=== PATIENT | male | born 1985 | race Two or more races ===

== ENCOUNTER 2023-07-12 13:17 | Emergency (ER) | payer OTHER ==
[~2023-07-12] VITALS: Ht 172.7 cm; Wt 86.0 kg
[2023-07-12] MEDS ORDERED: TETANUS-DIPTH-ACEL PERTUSSIS 0.5ML SYR Tdap IM ONE (13:45)
[2023-07-12] MEDS ORDERED: ACETAMINOPHEN 500 MG TAB PO ONE (13:45)
[2023-07-12] MEDS ORDERED: CEPHALEXIN 250 MG CAP PO ONE (13:45)
[2023-07-12] MEDS ORDERED: CEPH500T PO (13:48)
[2023-07-12] MEDS ORDERED: ACET-6 PO (13:48)
[2023-07-12 14:20] VITALS: RESP 18; O2SAT 100
[2023-07-12 20:08] VITALS: BP 140/83; PULSE 78; RESP 19; TEMP 97.8; O2SAT 97
== END 2023-07-12 20:09 | disposition home or self-care (01) ==
LOC: ER 13:17
DX: S61.203A Unspecified open wound of left middle finger without damage to nail, initial encounter (principal); Z79.899 Other long term (current) drug therapy; W45.8XXA Other foreign body or object entering through skin, initial encounter; Y93.89 Activity, other specified; Y92.89 Other specified places as the place of occurrence of the external cause; Y99.8 Other external cause status
CPT/HCPCS: 12001; 90471; 90715

== ENCOUNTER 2024-08-26 20:15 | Emergency (ER) | payer OTHER ==
[~2024-08-26] VITALS: Ht 154.9 cm; Wt 86.4 kg
[~2024-08-26 20:15] MED LIST: ACET-6 PO; CEPH500T PO
[2024-08-26] MEDS: HYDROcodone-ACET 5/325MG TAB PO ONE (21:39)
--- NOTE | 2024-08-26 21:45 | DVH ---
INDICATION: BACK PAIN LUMBAR COMPARISON: None TECHNIQUE: Views of the lumbar spine were obtained. FINDINGS: There is normal alignment of the lumbar spine. The lumbar vertebral bodies and T10 to T12 are normal in appearance with no compression fracture. The intervertebral disc spaces are normal. Facet and SI j oints appear unremarkable. IMPRESSION: No abnormality demonstrated.
[2024-08-26] MEDS: DexAMETHasone SOD PHOS 10MG/1ML VIAL INJ IM ONE (21:52)
[2024-08-26] MEDS: KETOROLAC TROMETH 60MG/2ML VIAL IM ONE (21:52)
[2024-08-26 21:55] VITALS: BP 139/95; PULSE 91; RESP 16; TEMP 98.8; O2SAT 96
--- NOTE | 2024-08-26 22:07 | ED.PDOC ---
Back pain HPI HPI Comments THIS IS A 39-YEAR-OLD MALE PRESENTS TO THE ED CHIEF COMPLAINT BILATERAL LOWER BACK PAIN. PATIENT STATES PAIN STARTED AFTER REPETITIVE MOPPING AT WORK. NOTES BILATERAL LOWER BACK PAIN 9/10 ON PAIN SCALE DESCRIBES ACHY AND SHARP IN NATURE STATES RADIATION DOWN BILATERAL BUTTOCKS AND POSTERIOR UPPER LEG. KNOWN INJURY, NUMBNESS, OR WEAKNESS. NOTES NO SADDLE ANESTHESIA OR LOSS OF BOWEL OR BLADDER CONTROL. Chief Complaint: Back Pain Time Seen by MD: 20:30 Primary Care Provider: WORK [facility] Reviewed Notes: Nurses Notes, Medications, Allergies Allergies: Coded Allergies: NO KNOWN ALLERGIES (Unverified , 07/12/23) Home Meds Active Scripts Acetaminophen (Acetaminophen Extra Stren) 500 Mg Tab, 500 MG PO QIDPRN PRN for 10 Days, #40 TAB Prov:JAMESJOSHUABRANDON S DO 07/12/23 Cephalexin Monohydrate (Cephalexin) 500 Mg Tab, 1 TAB PO QID for 10 Days, #40 TAB Prov:JAMESJOSHUABRANDON Vasquez DO 07/12/23 Information Source: Patient Past Medical History PAST MEDICAL HISTORY: Denies Surgical History: Unknown Family History Family History: Reviewed,noncontributory to illness, Unknown Social History Smoker: Non-Smoker Alcohol: Denies ETOH Use Drugs: Denies Drug Use Lives In: Home Constitutional: denies: chills, diaphoresis, fatigue, fever, malaise, sweats, weakness, others EENTM: denies: blurred vision, double vision, ear bleeding, ear discharge, ear drainage, ear pain, ear ringing, eye pain, eye redness, hearing loss, mouth pain, mouth swelling, nasal discharge, nose bleeding, nose congestion, nose pain, photophobia, tearing, throat pain, throat swelling, voice changes, others Respiratory: denies: cough, hemoptysis, orthopnea, SOB at rest, shortness of breath, SOB with excertion, stridor, wheezing, others Cardiovascular: denies: chest pain, dizzy spells, diaphoresis, Dyspnea on exertion, edema, irregular heart beat, left arm pain, lightheadedness, palpitations, PND, syncope, others Gastrointestinal: denies: abdomen distended, abdominal pain, blood streaked bowels, constipated, diarrhea, dysphagia, difficulty swallowing, hematemesis, melena, nausea, poor appetite, poor fluid intake, rectal bleeding, rectal pain, vomiting, others Genitourinary: denies: burning, dysuria, flank pain, frequency, hematuria, incontinence, penile discharge, penile sore, pain, testicle pain, testicle swelling, urgency, others Neurological: denies: dizziness, fainting, headache, left sided numbness, left sided weakness, numbness, paresthesia, pre-existing deficit, right sided numbness, right sided weakness, seizure, speech problems, tingling, tremors, weakness, others Musculoskeletal: reports: back pain; denies: gout, joint pain, joint swelling, muscle pain, muscle stiffness, neck pain, others Integumetry: denies: bruises, change in color, change in hair/nails, dryness, laceration, lesions, lumps, rash, wounds, others Allergic/Immunocompromised: denies: Difficulty Healing, Frequent Infections, Hives, Itching, others Hematologic/Lymphatic: denies: anemia, blood clots, easy bleeding, easy bruising, swollen glands, others Endocrine: denies: excessive hunger, excessive sweating, excessive thirst, excessive urination, flushing, intolerance to cold, intolerance to heat, unexplained weight gain, unexplained weight loss, others Psychiatric: denies: anxiety, bipolar disorder, depression, hopeless, panic disorder, schizophrenia, sleepless, suicidal, others Physical Exam General Appearance: No Apparent Distress, Normal HEENT: Pharynx Normal Neck: Full Range of Motion, Non-Tender Respiratory: Chest Non-Tender, Lungs Clear, No Accessory Muscle Use, No Respiratory Distress, Normal Breath Sounds Cardiovascular: No Murmur, Normal Peripheral Pulses, Regular Rate/Rhythm Breast Exam: Deferred Gastrointestinal: Non Tender, Soft Genitalia: Deferred Pelvic: Deferred Rectal: Deferred Extremities: Normal capillary refill, Normal inspection, Normal range of motion, Non-tender, No pedal edema Musculoskeletal : Location: Bilateral Extremity Location: Back (MODERATE TENDERNESS PALPATED OVER L1 THROUGH L5 PARASPINAL MUSCLES AND LOWER BACK MUSCULATURE. NO TENDERNESS PALPATED OVER LUMBAR SPINE WITHOUT CREPITUS OR STEP-OFFS. NEGATIVE STRAIGHT LEG RAISE TEST BILATERAL. STRENGTH SENSORY AND MOTION INTACT POSITIVE PEDAL PULSES. NO NOTED OBVIOUS EXTERNAL TRAUMA) Apperance: Normal Neurologic: Alert, bilingual branch manager II-XII nml as Tested, No Motor Deficits, Normal Affect, Normal Mood, No Sensory Deficits Cerebellar Function: Normal Reflexes: Normal Skin: Dry, Normal Color, Warm Lymphatic: No Adenopathy Was a procedure done? Was a procedure done?: No Back Pain Differential Dx Differential Diagnosis: Fracture, Musculoskeletal Pain X-Ray, Labs, Meds, VS Vital Signs Date Time Temp Pulse Resp B/P (MAP) Pulse Ox O2 Delivery O2 Flow Rate FiO2 08/26/24 21:55 91 16 96 Room Air 08/26/24 21:55 98.8 91 16 139/95 (110) 96 98.8 08/26/24 21:00 98.8 91 16 139/95 (110) 96 Current Medications Medications (Trade) Dose Ordered Sig/Pearl Route Start Time Stop Time Status Last Admin Ketorolac Tromethamine (Toradol Injection) 60 mg ONCE ONCE IM 08/26/24 21:30 08/26/24 21:31 DC 08/26/24 21:52 Dexamethasone Sodium Phosphate (Decadron Injection) 10 mg ONCE ONCE IM 08/26/24 21:30 08/26/24 21:31 DC 08/26/24 21:52 Acetaminophen/ Hydrocodone Bitart ([place] 5/325MG Tab) 1 tab ONCE ONCE PO 08/26/24 21:30 08/26/24 21:31 DC 08/26/24 21:39 X-Ray, Labs, Meds, VS Comment LUMBAR SPINE X-RAY SHOWS NO ACUTE FINDINGS OR OSSEOUS LESIONS. LIKELY LUMBAR BACK STRAIN MUSCLE PAIN.. TRIAL MUSCLE RELAXER AND ANTI- INFLAMMATORY SCRIPT TO PHARMACY. ADVISED TO FOLLOW UP WITH THE EM[employer]OY[employer] [facility], ICE AND HEAT DISCUSSED ER RETURN PRECAUTIONS GIVEN PATIENT INDICATED UNDERSTANDING AGREES WITH DISCHARGE PLAN OF CARE. Time of 1ST Reevaluation: 22:09 Reevaluation 1ST: Improved Patient Education/Counseling: Diagnosis, Treatment, Prognosis, Need For Follow Up Family Education/Counseling: No Family Present Departure 1 Departure Time of Disposition: 22:09 Impression: Primary Impression: Lumbar sprain Qualified Codes: S33.5XXA - Sprain of ligaments of lumbar spine, initial encounter Additional Impression: Musculoskeletal pain Disposition: HOME / SELF CARE / HOMELESS Condition: Stable Discharged With: Spouse Critical Care Note Critical Care Time?: No Stability Stability form required: BOOKER Deng Aug 26, 2024 22:07
[2024-08-26] MEDS ORDERED: TIZA-142 PO (22:18)
[2024-08-26] MEDS ORDERED: IBUP-1456 PO (22:18)
== END 2024-08-26 22:48 | disposition home or self-care (01) ==
LOC: ER 20:15
DX: S33.5XXA Sprain of ligaments of lumbar spine, initial encounter (principal); M79.18 Myalgia, other site; X58.XXXA Exposure to other specified factors, initial encounter; Y93.89 Activity, other specified; Y92.89 Other specified places as the place of occurrence of the external cause; Y99.8 Other external cause status
CPT/HCPCS: 72100; 96372; 99284; J1100; J1885